=== PATIENT | male | born 1980 | race Caucasian/White ===

== ENCOUNTER 2024-06-06 16:05 | Outpatient (CLI) | payer OTHER | END 2024-06-06 16:06 | disposition home or self-care (01) | LOC: CSHMRI 16:05 | PROVIDERS: ATTEND Family Medicine | DX: S89.92XD Unspecified injury of left lower leg, subsequent encounter (principal); S83.512A Sprain of anterior cruciate ligament of left knee, initial encounter; S80.02XA Contusion of left knee, initial encounter; M25.462 Effusion, left knee ==